=== PATIENT | female | born 2005 | race Caucasian/White ===

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

== ENCOUNTER → 2025-04-20 | Outpatient (REF) | LOC: M PLAIMG 12:28 | PROVIDERS: ATTEND Internal Medicine | DX: R06.02 Shortness of breath (principal) ==